=== PATIENT | male | born 1940 | race African-American/Black ===

== ENCOUNTER 2016-07-17 08:30 | Observation (INO) | payer MEDICARE, MEDICAID ==
[~2016-07-17] VITALS: Ht 167.6 cm; Wt 65.8 kg
[2016-07-17 10:34] LABS: Albumin 3.3 g/dL (3.4-5.0); BUN/Creatinine Ratio 17.5; Basophils # (auto) 0 uL; Basophils % (auto) 0.4 % (0.0-2.0); Bilirubin, Total 0.4 mg/dL (0.2-1.0); Calcium 9.1 mg/dL (8.5-10.1); Eosinophils # (auto) 0 uL; Eosinophils % (auto) 0.9 % (0.0-7.0); Hematocrit 42.3 % (41.0-53.0); Hemoglobin 14.2 g/dL (13.5-17.5); Lymphocytes # (auto) 1.2 uL; Lymphocytes % (auto) 26.8 % (10.0-50.0); Magnesium 2.1 mg/dL (1.6-2.6); Mean Corpuscular Hemoglobin 29.3 pg (28.0-32.0); Mean Corpuscular Hgb Conc. 33.5 g/dL (32.0-36.0); Mean Corpuscular Volume 87.4 fL (80.0-100.0); Mean Platelet Volume 8.4 fL (7.4-10.4); Monocytes # (auto) 0.3 uL; Monocytes % (auto) 6.9 % (0.0-12.0); Platelet Count (auto) 275 10^3/uL (140-450); Red Cell Distribution Width 14.9 % (11.6-16.0); Total Protein 7.9 g/dL (6.4-8.2); White Blood Cell 4.6 10^3/uL (4.4-10.8)
[2016-07-17 10:52] LABS: Potassium 3.7 mmol/L (3.5-5.1)
[2016-07-17 14:01] VITALS: BP 171/87
[2016-07-17 14:03] LABS: Partial Thromboplastin Time 26.3 sec (22.64-33.71); Prothrombin Time 10.3 sec (9.37-12.3)
[2016-07-17] MEDS ORDERED: ACETAMINOPHEN 500 MG TAB PO PRN (15:30)
[2016-07-17] MEDS ORDERED: NITROGLYCERIN 0.4 MG SL TAB SL PRN (15:30)
[2016-07-17] MEDS ORDERED: DEXTROSE (50%) 50ML SYRG IV PRN (15:30)
[2016-07-17] MEDS ORDERED: PROMETHAZINE HCL 25 MG/ML 1ML IV PRN (15:30)
[2016-07-17] MEDS ORDERED: HYDROcodone-ACET 5/325MG TAB PO PRN (15:30)
[2016-07-17] MEDS ORDERED: LORazepam 0.5 MG TAB PO PRN (15:30)
[2016-07-17] MEDS ORDERED: LACTULOSE 20Gm/30ML SOLN PO PRN (15:30)
[2016-07-17] MEDS ORDERED: MORPHINE SULF INJ 2 MG/ML SYRINGE 1ML IV PRN ×2 (15:30)
[2016-07-17] MEDS ORDERED: TEMAZEPAM 15 MG CAP PO PRN (15:30)
[2016-07-17] MEDS ORDERED: ENOXAPARIN SOD 40 MG/0.4 ML SYRINGE SC ONE (16:30)
[2016-07-17] MEDS ORDERED: ASPirin 81 mg TAB PO ONE (16:30)
[2016-07-17] MEDS ORDERED: PANTOPRAZOLE 40 MG TAB PO ONE (16:30)
[2016-07-17] MEDS ORDERED: POTASSIUM CHL 20 Meq TABLET PO ONE (16:30)
[2016-07-17] MEDS ORDERED: ENALAPRIL MALEATE 2.5 MG TAB PO ONE (16:30)
[2016-07-17] MEDS ORDERED: NITROGLYCERIN 0.2MG/HR TOPICAL PATCH TD ONE (16:30)
[2016-07-17] MEDS ORDERED: ACCU-CHEK COMFORT CURVE STRIP VI SCH (17:00)
[2016-07-17] MEDS ORDERED: InsuLIN REG 1unit/0.01ml Soln (100units/ml) SC SCH (17:00)
[2016-07-17] MEDS ORDERED: FUROSEMIDE 40 MG/4 ML VIAL IV SCH (18:00)
[2016-07-17] MEDS ORDERED: CARVEDILOL 3.125 MG TAB PO SCH (22:00)
[2016-07-18] MEDS ORDERED: PANTOPRAZOLE 40 MG TAB PO SCH (10:00)
[2016-07-18] MEDS ORDERED: NITROGLYCERIN 0.2MG/HR TOPICAL PATCH TD SCH (10:00)
[2016-07-18] MEDS ORDERED: POTASSIUM CHL 20 Meq TABLET PO SCH (10:00)
[2016-07-18] MEDS ORDERED: ASPirin 81 mg TAB PO SCH (10:00)
[2016-07-18] MEDS ORDERED: ENALAPRIL MALEATE 2.5 MG TAB PO SCH (10:00)
[2016-07-18] MEDS ORDERED: ENOXAPARIN SOD 40 MG/0.4 ML SYRINGE SC SCH (10:00)
[2016-07-19 12:37] LABS: Temperature: 21.8 C (20.0-25.0)
== END 2016-07-17 16:40 | disposition left against medical advice (07) | DRG 683 ==
LOC: ER 08:30 → EDUNIT# 08:30 → OVERFLOW 13:11 → ER 16:00
PROVIDERS: ADMIT Family Medicine; ATTEND Family Medicine
DX: I12.9 Hypertensive chronic kidney disease with stage 1 through stage 4 chronic kidney disease, or unspecified chronic kidney disease (principal); E74.8 Other specified disorders of carbohydrate metabolism; R42 Dizziness and giddiness; N18.3 Chronic kidney disease, stage 3 (moderate); E11.22 Type 2 diabetes mellitus with diabetic chronic kidney disease; Z82.49 Family history of ischemic heart disease and other diseases of the circulatory system
CPT/HCPCS: 36415; 70450; 71010; 80053; 82550; 82607; 82746; 83036; 83735; 84443; 84484; 85025; 85610; 85652; 85730; 86141; 93005; 94761; 99285; G0378

== ENCOUNTER 2017-08-27 17:41 | Emergency (ER) | payer MEDICARE, OTHER ==
[~2017-08-27] VITALS: Ht 167.6 cm; Wt 68.0 kg
[2017-08-27 17:47] VITALS: BP 200/92
[2017-08-27 22:29] LABS: Basophils # (auto) 0 uL; Basophils % (auto) 0.6 % (0.0-2.0); Eosinophils # (auto) 0.1 uL; Eosinophils % (auto) 1.7 % (0.0-7.0); Hemoglobin 13.7 g/dL (13.5-17.5); Lymphocytes # (auto) 1.3 uL; Mean Corpuscular Hemoglobin 29.4 pg (28.0-32.0); Mean Corpuscular Hgb Conc. 33.5 g/dL (32.0-36.0); Mean Corpuscular Volume 87.6 fL (80.0-100.0); Monocytes # (auto) 0.3 uL; Monocytes % (auto) 9.2 % (0.0-12.0); Neutrophils # (auto) 1.7 uL; Neutrophils % (auto) 50.5 % (37.0-80.0); Nucleated Red Blood Cells % 0.2 %; Platelet Count (auto) 218 10^3/uL (140-450); Red Blood Cells 4.67 10^6/uL (4.5-5.90); Red Cell Distribution Width 14.6 % (11.8-14.3); White Blood Cell 3.3 10^3/uL (4.4-10.8)
[2017-08-27 22:51] LABS: Albumin 3.2 g/dL (3.4-5.0); BUN/Creatinine Ratio 17.5; Calcium 8.9 mg/dL (8.5-10.1); Potassium 3.3 mmol/L (3.5-5.1)
[2017-08-27 22:56] LABS: Bilirubin, Total 0.4 mg/dL (0.2-1.0); Total Protein 7.4 g/dL (6.4-8.2)
== END 2017-08-28 00:08 | disposition home or self-care (01) ==
LOC: EDBD 17:41 → ER 17:41
DX: H93.11 Tinnitus, right ear (principal); R07.89 Other chest pain; I12.9 Hypertensive chronic kidney disease with stage 1 through stage 4 chronic kidney disease, or unspecified chronic kidney disease; E11.22 Type 2 diabetes mellitus with diabetic chronic kidney disease; N18.3 Chronic kidney disease, stage 3 (moderate)
CPT/HCPCS: 36415; 80053; 84484; 85025; 93005

== ENCOUNTER 2019-04-21 22:18 | Emergency (ER) | payer MEDICARE, OTHER ==
[~2019-04-21] VITALS: Ht 182.9 cm; Wt 63.5 kg
[2019-04-21] MEDS ORDERED: MECLIZINE HCL 25 MG TAB PO ONE (23:30)
[2019-04-21] MEDS ORDERED: LABETALOL HCL 5 MG/ML 4ML SYRINGE IV ONE (23:45)
[2019-04-22 00:39] LABS: INR 1.3 (0.9-1.15); Partial Thromboplastin Time 24.2 sec (23.64-32.05)
[2019-04-22 00:44] LABS: Urine Bacteria NONE SEEN /hpf (None Seen); Urine Blood Negative /uL (Negative); Urine Specific Gravity 1.011 (1.001-1.035); Urine WBC <1 /hpf (0 - 3)
[2019-04-22 00:46] LABS: Alanine Aminotransferase 26 U/L (16-61); Albumin 3.3 g/dL (3.4-5.0); Anion Gap 8 (5-15); BUN/Creatinine Ratio 20.6; Blood Alcohol < 3.0 mg/dL (0-5); Blood Urea Nitrogen 32 mg/dL (7-18); Carbon Dioxide 24 mmol/L (21-32); Chloride 108 mmol/L (98-107); GFR African American 56 mL/min; GFR Non-African American 46 mL/min; Glucose 105 mg/dL (74-106); Magnesium 2.1 mg/dL (1.6-2.6); Potassium 3.9 mmol/L (3.5-5.1); Sodium 140 mmol/L (136-145)
[2019-04-22 00:52] LABS: Alkaline Phosphatase 90 U/L (45-117); Aspartate Aminotransferase 29 U/L (15-37); Bilirubin, Total 0.4 mg/dL (0.2-1.0); Total Protein 7.8 g/dL (6.4-8.2)
[2019-04-22 01:26] LABS: Basophils # (auto) 0.2 uL; Eosinophils # (auto) 0 uL; Eosinophils % (auto) 0.8 % (0.0-7.0); Hematocrit 34.4 % (41.0-53.0); Hemoglobin 11.5 g/dL (13.5-17.5); Lymphocytes # (auto) 0.5 uL; Lymphocytes % (auto) 9.2 % (10.0-50.0); Mean Corpuscular Hemoglobin 29.8 pg (28.0-32.0); Mean Corpuscular Hgb Conc. 33.4 g/dL (32.0-36.0); Mean Corpuscular Volume 89.3 fL (80.0-100.0); Monocytes # (auto) 0.3 uL; Monocytes % (auto) 4.7 % (0.0-12.0); Neutrophils # (auto) 4.4 uL; Neutrophils % (auto) 81.3 % (37.0-80.0); Platelet Count (auto) 168 10^3/uL (140-450); Red Blood Cells 3.85 10^6/uL (4.5-5.90); Red Cell Distribution Width 14.5 % (11.8-14.3); White Blood Cell 5.4 10^3/uL (4.4-10.8)
[2019-04-22] MEDS ORDERED: LORazepam 2MG/ML-1ML VIAL ONE (02:07)
[2019-04-22] MEDS ORDERED: LORazepam 2MG/ML-1ML VIAL IV ONE (03:30)
[2019-04-22 05:07] VITALS: BP 182/71
== END 2019-04-22 07:26 | disposition left against medical advice (07) ==
LOC: EDBD 22:18 → EDSEX 22:18 → ER 22:22
DX: R42 Dizziness and giddiness (principal); R79.89 Other specified abnormal findings of blood chemistry; I12.9 Hypertensive chronic kidney disease with stage 1 through stage 4 chronic kidney disease, or unspecified chronic kidney disease; E11.22 Type 2 diabetes mellitus with diabetic chronic kidney disease; N18.3 Chronic kidney disease, stage 3 (moderate); E78.5 Hyperlipidemia, unspecified
CPT/HCPCS: 36415; 71045; 80053; 80320; 81001; 83605; 83735; 84484; 85025; 85379; 85610; 85730; 87040; 87086; 93005; 96374; 99284; J2060; J3490; J8597

== ENCOUNTER 2020-12-17 20:24 | Inpatient (IN) | payer MEDICARE, MEDICAID ==
[~2020-12-17] VITALS: Ht 165.1 cm; Wt 63.3 kg
[2020-12-17 22:28] LABS: Basophils # (auto) 0 10 ^3/uL (0-0.2); Basophils % (auto) 0.8 % (0.0-2.0); Eosinophils # (auto) 0.1 10 ^3/uL (0-0.8); Eosinophils % (auto) 1.3 % (0.0-7.0); Hematocrit 42.4 % (41.0-53.0); Hemoglobin 14.5 g/dL (13.5-17.5); Lymphocytes # (auto) 1.6 10 ^3/uL (0.4-5.4); Lymphocytes % (auto) 38.4 % (10.0-50.0); Mean Corpuscular Hemoglobin 29.1 pg (28.0-32.0); Mean Corpuscular Hgb Conc. 34.3 g/dL (32.0-36.0); Mean Corpuscular Volume 84.8 fL (80.0-100.0); Monocytes # (auto) 0.4 10 ^3/uL (0-1.3); Monocytes % (auto) 10.3 % (0.0-12.0); Neutrophils % (auto) 49.2 % (37.0-80.0); Nucleated Red Blood Cells % 0.2 %; Red Cell Distribution Width 14.2 % (11.8-14.3); White Blood Cell 4.1 10^3/uL (4.4-10.8)
[2020-12-17 22:47] LABS: Calcium 9.6 mg/dL (8.5-10.1); Magnesium 1.9 mg/dL (1.6-2.6); Potassium 4.1 mmol/L (3.5-5.1)
[2020-12-17 22:56] LABS: Bilirubin, Total 0.4 mg/dL (0.2-1.0); Total Protein 8.2 g/dL (6.4-8.2)
[2020-12-17] MEDS ORDERED: SODIUM CHLORIDE 0.9% 1,000 ML IV ONE (23:15)
[2020-12-17] MEDS ORDERED: InsuLIN REG 1unit/0.01ml Soln (100units/ml) IV ONE (23:15)
[2020-12-18] MEDS ORDERED: HYDROcodone-ACET 5/325MG TAB PO PRN (05:30)
[2020-12-18] MEDS ORDERED: ALUM & MAG HYDROX-SIMETH LIQ(MAALOX) 30 ML PO PRN (05:30)
[2020-12-18] MEDS: SODIUM CHLORIDE 0.9% 1,000 ML IV SCH ×4 (05:30→18:47)
[2020-12-18] MEDS ORDERED: InsuLIN R (HUMAN) 100 UNITS in SODIUM CHL 0.9% 99 ML IV SCH (05:30)
[2020-12-18] MEDS ORDERED: ONDANSETRON HCL 4 MG/2 ML VIAL IV PRN (05:30)
[2020-12-18] MEDS ORDERED: DOCUSATE SOD 100 MG CAP PO PRN (05:30)
[2020-12-18] MEDS ORDERED: ACETAMINOPHEN 325 MG TAB PO PRN (05:30)
[2020-12-18] MEDS: D5W/SOD CHL 0.45%/KCL 20MEQ 1,000 ML IV SCH ×2 (05:30→11:13)
[2020-12-18] MEDS ORDERED: MORPHINE SULF INJ 2 MG/ML SYRINGE 1ML IV PRN (05:30)
[2020-12-18] MEDS ORDERED: INSULIN LANTUS (GLARGINE) 1 /0.01ml (100units/ml) SC ONE (05:30)
[2020-12-18] MEDS ORDERED: DEXTROSE (50%) 50ML SYRG IV PRN ×2 (05:30→13:00)
[2020-12-18] MEDS: ACCU-CHEK COMFORT CURVE STRIP VI SCH ×7 (07:30→21:17)
[2020-12-18 09:22] LABS: Urine Bacteria NONE SEEN /hpf (None Seen); Urine Specific Gravity 1.015 (1.001-1.035); Urine WBC 2 /hpf (0 - 3)
[2020-12-18 09:24] LABS: Urine Blood Trace /uL (Negative)
[2020-12-18] MEDS ORDERED: SODIUM CHLORIDE 0.9% 1,000 ML IV SCH (09:30)
[2020-12-18 10:41] LABS: BUN/Creatinine Ratio 20.9; Calcium 9.2 mg/dL (8.5-10.1); Potassium 3.3 mmol/L (3.5-5.1)
[2020-12-18] MEDS: InsuLIN REG 1unit/0.01ml Soln (100units/ml) SC SCH (18:41)
[2020-12-18 19:21] LABS: BUN/Creatinine Ratio 19.5; Calcium 9.1 mg/dL (8.5-10.1); Potassium 3.8 mmol/L (3.5-5.1)
[2020-12-18 20:00] VITALS: BP 140/86
[2020-12-18 21:50] LABS: Potassium 3.4 mmol/L (3.5-5.1)
[2020-12-18 21:52] LABS: BUN/Creatinine Ratio 19.4
[2020-12-18 22:00] VITALS: BP 140/86
[2020-12-18] MEDS ORDERED: InsuLIN REG 1unit/0.01ml Soln (100units/ml) SC SCH (22:00)
[2020-12-19] MEDS: SODIUM CHLORIDE 0.9% 1,000 ML IV SCH ×2 (00:40→06:49)
[2020-12-19 05:00] VITALS: BP 138/91
[2020-12-19 05:51] LABS: Basophils # (auto) 0 10 ^3/uL (0-0.2); Basophils % (auto) 0.7 % (0.0-2.0); Eosinophils # (auto) 0.1 10 ^3/uL (0-0.8); Eosinophils % (auto) 1.9 % (0.0-7.0); Hematocrit 42.3 % (41.0-53.0); Hemoglobin 14.2 g/dL (13.5-17.5); Lymphocytes # (auto) 1.9 10 ^3/uL (0.4-5.4); Lymphocytes % (auto) 43.5 % (10.0-50.0); Mean Corpuscular Hemoglobin 28.5 pg (28.0-32.0); Mean Corpuscular Hgb Conc. 33.6 g/dL (32.0-36.0); Mean Corpuscular Volume 84.7 fL (80.0-100.0); Monocytes # (auto) 0.4 10 ^3/uL (0-1.3); Monocytes % (auto) 9.2 % (0.0-12.0); Neutrophils # (auto) 1.9 10 ^3/uL (1.6-8.6); Neutrophils % (auto) 44.7 % (37.0-80.0); Nucleated Red Blood Cells % 0.1 %; Red Cell Distribution Width 14.3 % (11.8-14.3); White Blood Cell 4.3 10^3/uL (4.4-10.8)
[2020-12-19 06:16] LABS: Albumin 2.5 g/dL (3.4-5.0); Calcium 8.9 mg/dL (8.5-10.1); Potassium 3.1 mmol/L (3.5-5.1)
[2020-12-19 06:20] LABS: BUN/Creatinine Ratio 20.3; Bilirubin, Total 0.4 mg/dL (0.2-1.0); Total Protein 6.9 g/dL (6.4-8.2)
[2020-12-19] MEDS: ACCU-CHEK COMFORT CURVE STRIP VI SCH ×2 (06:48→11:30)
[2020-12-19] MEDS: InsuLIN REG 1unit/0.01ml Soln (100units/ml) SC SCH ×2 (06:49→11:30)
[2020-12-19 09:00] VITALS: BP 149/96
[2020-12-19] MEDS ORDERED: INSULIN LANTUS (GLARGINE) 1 /0.01ml (100units/ml) SC SCH (10:00)
[2020-12-19] MEDS ORDERED: POTASSIUM CHL 20 Meq TABLET PO ONE (11:15)
[2020-12-19 12:18] VITALS: BP 149/46
[2020-12-19 13:11] VITALS: BP 117/73
== END 2020-12-19 13:00 | disposition home or self-care (01) | DRG 637 ==
LOC: EDBD 20:24 → EDUNIT# 20:24 → ER 20:26 → TELE 12-18 05:17 → TELE-WESTW 12-18 16:33
PROVIDERS: ADMIT Hospitalist; ATTEND Family Medicine
DX: E11.10 Type 2 diabetes mellitus with ketoacidosis without coma (principal); G93.41 Metabolic encephalopathy; E87.1 Hypo-osmolality and hyponatremia; F03.90 Unspecified dementia, unspecified severity, without behavioral disturbance, psychotic disturbance, mood disturbance, and anxiety; E11.22 Type 2 diabetes mellitus with diabetic chronic kidney disease; E78.00 Pure hypercholesterolemia, unspecified; I12.9 Hypertensive chronic kidney disease with stage 1 through stage 4 chronic kidney disease, or unspecified chronic kidney disease; N18.9 Chronic kidney disease, unspecified; Z20.822 Contact with and (suspected) exposure to COVID-19; Z82.49 Family history of ischemic heart disease and other diseases of the circulatory system; Z83.3 Family history of diabetes mellitus
CPT/HCPCS: 36415; 80048; 80053; 81001; 82010; 82962; 83036; 83735; 83880; 85025; 87081; 87426; 96361; 96374; G0378; J1815

== ENCOUNTER 2021-01-31 05:19 | Emergency (ER) | payer MEDICARE, MEDICAID ==
[~2021-01-31] VITALS: Ht 165.1 cm; Wt 68.0 kg
[2021-01-31 06:40] LABS: Basophils # (auto) 0 10 ^3/uL (0-0.2); Basophils % (auto) 0.7 % (0.0-2.0); Eosinophils # (auto) 0 10 ^3/uL (0-0.8); Eosinophils % (auto) 0.7 % (0.0-7.0); Hematocrit 43.1 % (41.0-53.0); Hemoglobin 14.2 g/dL (13.5-17.5); Lymphocytes # (auto) 0.7 10 ^3/uL (0.4-5.4); Lymphocytes % (auto) 17.3 % (10.0-50.0); Mean Corpuscular Hemoglobin 28.4 pg (28.0-32.0); Mean Corpuscular Hgb Conc. 32.9 g/dL (32.0-36.0); Mean Corpuscular Volume 86.2 fL (80.0-100.0); Monocytes # (auto) 0.3 10 ^3/uL (0-1.3); Monocytes % (auto) 6.3 % (0.0-12.0); Neutrophils # (auto) 3.2 10 ^3/uL (1.6-8.6); Nucleated Red Blood Cells % 0.1 %; Red Cell Distribution Width 16.5 % (11.8-14.3); White Blood Cell 4.3 10^3/uL (4.4-10.8)
[2021-01-31 06:58] LABS: Chloride 103 mmol/L (98-107); Sodium 139 mmol/L (136-145)
[2021-01-31 07:05] LABS: Alanine Aminotransferase 28 U/L (16-61); Albumin 3.1 g/dL (3.4-5.0); Anion Gap 11 (5-15); Aspartate Aminotransferase 27 U/L (15-37); BUN/Creatinine Ratio 17.4; Blood Urea Nitrogen 26 mg/dL (7-18); Calcium 9.3 mg/dL (8.5-10.1); Carbon Dioxide 25 mmol/L (21-32); GFR African American 58 mL/min; GFR Non-African American 48 mL/min; Glucose 149 mg/dL (74-106); Lipase 205 U/L (73-393)
[2021-01-31 07:20] LABS: Alkaline Phosphatase 74 U/L (45-117); Bilirubin, Total 0.3 mg/dL (0.2-1.0)
[2021-01-31] MEDS ORDERED: cloNIDine HCL 0.1 MG TAB PO ONE ×2 (07:30→08:15)
[2021-01-31] MEDS ORDERED: SODIUM CHLORIDE 0.9% 1,000 ML IV ONE (07:30)
[2021-01-31 12:00] VITALS: BP 151/77
== END 2021-01-31 13:42 | disposition home or self-care (01) ==
LOC: EDBD 05:19 → ER 05:19
DX: I11.0 Hypertensive heart disease with heart failure (principal); E11.65 Type 2 diabetes mellitus with hyperglycemia; I50.9 Heart failure, unspecified; E46 Unspecified protein-calorie malnutrition; E78.5 Hyperlipidemia, unspecified; Z68.25 Body mass index [BMI] 25.0-25.9, adult; Z20.822 Contact with and (suspected) exposure to COVID-19
CPT/HCPCS: 36415; 70450; 71045; 80053; 83605; 83690; 84484; 85025; 87426; 93005; 96360; 96361; 99285; J7030

== ENCOUNTER 2021-05-29 08:48 | Emergency (ER) | payer MEDICAID, MEDICARE, OTHER ==
[~2021-05-29] VITALS: Ht 172.7 cm; Wt 63.5 kg
[2021-05-29] MEDS ORDERED: MECL25CH38 PO (09:45)
[2021-05-29 10:45] VITALS: BP 161/74
[2021-05-29] MEDS ORDERED: MECLIZINE HCL 25 MG TAB PO ONE (11:15)
== END 2021-05-29 11:24 | disposition home or self-care (01) ==
LOC: ER 08:48 → EDBD 08:48 → ER 11:24
DX: R42 Dizziness and giddiness (principal); R53.1 Weakness; R11.2 Nausea with vomiting, unspecified; I11.0 Hypertensive heart disease with heart failure; I50.9 Heart failure, unspecified; E11.9 Type 2 diabetes mellitus without complications; E78.5 Hyperlipidemia, unspecified
CPT/HCPCS: 70450; 93005; 99284; J8597

== ENCOUNTER 2021-09-04 21:19 | Emergency (ER) | payer MEDICARE, OTHER ==
[~2021-09-04] VITALS: Ht 175.3 cm; Wt 72.6 kg
[~2021-09-04 21:19] MED LIST: MECL25CH38 PO
[2021-09-04 23:30] LABS: Basophils # (auto) 0 10 ^3/uL (0-0.2); Basophils % (auto) 0.7 % (0.0-2.0); Eosinophils # (auto) 0 10 ^3/uL (0-0.8); Eosinophils % (auto) 0.7 % (0.0-7.0); Hemoglobin 12.5 g/dL (13.5-17.5); Lymphocytes % (auto) 19.1 % (10.0-50.0); Mean Corpuscular Hemoglobin 30.1 pg (28.0-32.0); Mean Corpuscular Hgb Conc. 33.7 g/dL (32.0-36.0); Mean Corpuscular Volume 89.1 fL (80.0-100.0); Monocytes # (auto) 0.4 10 ^3/uL (0-1.3); Monocytes % (auto) 7.4 % (0.0-12.0); Neutrophils # (auto) 3.7 10 ^3/uL (1.6-8.6); Neutrophils % (auto) 72.1 % (37.0-80.0); Nucleated Red Blood Cells % 0.1 %; Red Blood Cells 4.15 10^6/uL (4.5-5.90); Red Cell Distribution Width 14.6 % (11.8-14.3); White Blood Cell 5.1 10^3/uL (4.4-10.8)
[2021-09-05 01:09] LABS: Albumin 2.9 g/dL (3.4-5.0); BUN/Creatinine Ratio 16.1; Potassium 3.6 mmol/L (3.5-5.1)
[2021-09-05 01:12] LABS: Bilirubin, Total 0.1 mg/dL (0.2-1.0); Total Protein 6.8 g/dL (6.4-8.2)
[2021-09-05 06:00] VITALS: BP 133/70
== END 2021-09-05 06:20 | disposition home or self-care (01) ==
LOC: EDBD 21:19 → ER 21:22
DX: F03.90 Unspecified dementia, unspecified severity, without behavioral disturbance, psychotic disturbance, mood disturbance, and anxiety (principal); E11.22 Type 2 diabetes mellitus with diabetic chronic kidney disease; I13.0 Hypertensive heart and chronic kidney disease with heart failure and stage 1 through stage 4 chronic kidney disease, or unspecified chronic kidney disease; N18.30 Chronic kidney disease, stage 3 unspecified; I50.9 Heart failure, unspecified
CPT/HCPCS: 36415; 80053; 85025; 93005

== ENCOUNTER 2021-12-27 01:41 | Emergency (ER) | payer MEDICAID, MEDICARE, OTHER ==
[~2021-12-27] VITALS: Ht 182.9 cm; Wt 61.3 kg
[2021-12-27 04:04] LABS: Basophils # (auto) 0 10 ^3/uL (0-0.2); Basophils % (auto) 0.6 % (0.0-2.0); Eosinophils # (auto) 0.1 10 ^3/uL (0-0.8); Eosinophils % (auto) 1.4 % (0.0-7.0); Hematocrit 38.9 % (41.0-53.0); Hemoglobin 12.9 g/dL (13.5-17.5); Lymphocytes # (auto) 1.7 10 ^3/uL (0.4-5.4); Lymphocytes % (auto) 45.1 % (10.0-50.0); Mean Corpuscular Hemoglobin 29.5 pg (28.0-32.0); Mean Corpuscular Hgb Conc. 33.3 g/dL (32.0-36.0); Mean Corpuscular Volume 88.5 fL (80.0-100.0); Monocytes # (auto) 0.4 10 ^3/uL (0-1.3); Monocytes % (auto) 10.4 % (0.0-12.0); Neutrophils # (auto) 1.6 10 ^3/uL (1.6-8.6); Neutrophils % (auto) 42.5 % (37.0-80.0); Nucleated Red Blood Cells % 0.2 %; Red Blood Cells 4.39 10^6/uL (4.5-5.90); Red Cell Distribution Width 14.8 % (11.8-14.3); White Blood Cell 3.8 10^3/uL (4.4-10.8)
[2021-12-27 04:19] LABS: Albumin 3.2 g/dL (3.4-5.0); BUN/Creatinine Ratio 16.6; Potassium 3.2 mmol/L (3.5-5.1)
[2021-12-27 04:21] LABS: Bilirubin, Total 0.3 mg/dL (0.2-1.0); Total Protein 7.3 g/dL (6.4-8.2)
[2021-12-27 06:10] VITALS: BP 154/84
== END 2021-12-27 06:10 | disposition home or self-care (01) ==
LOC: ER 01:41 → EDBD 01:41 → ER 06:10
DX: R55 Syncope and collapse (principal); I11.0 Hypertensive heart disease with heart failure; I50.9 Heart failure, unspecified; E11.9 Type 2 diabetes mellitus without complications; E78.5 Hyperlipidemia, unspecified; Z79.899 Other long term (current) drug therapy
CPT/HCPCS: 36415; 80053; 85025; 93005

== ENCOUNTER 2022-04-23 04:04 | Inpatient (IN) | payer OTHER, MEDICAID ==
[~2022-04-23] VITALS: Ht 193 cm; Wt 77.1 kg
[2022-04-23] MEDS ORDERED: TETANUS-DIPTH-ACEL PERTUSSIS 0.5ML SYR Tdap IM ONE (07:15)
[2022-04-23] MEDS ORDERED: BUPIVACAINE W/ EPINEPH 0.25% INJ 50ML MDV IJ ONE (10:45)
[2022-04-23] MEDS ORDERED: ceFAZolin 1GM/50ML 50 ML IV ONE ×2 (11:00→13:45)
[2022-04-23 11:11] LABS: Basophils # (auto) 0 10 ^3/uL (0-0.2); Basophils % (auto) 0.4 % (0.0-2.0); Eosinophils # (auto) 0 10 ^3/uL (0-0.8); Eosinophils % (auto) 1.3 % (0.0-7.0); Hematocrit 44.4 % (41.0-53.0); Hemoglobin 14.3 g/dL (13.5-17.5); Lymphocytes # (auto) 1.1 10 ^3/uL (0.4-5.4); Lymphocytes % (auto) 34.4 % (10.0-50.0); Mean Corpuscular Hemoglobin 28.7 pg (28.0-32.0); Mean Corpuscular Hgb Conc. 32.2 g/dL (32.0-36.0); Mean Corpuscular Volume 89.1 fL (80.0-100.0); Monocytes # (auto) 0.4 10 ^3/uL (0-1.3); Monocytes % (auto) 12.7 % (0.0-12.0); Neutrophils # (auto) 1.6 10 ^3/uL (1.6-8.6); Neutrophils % (auto) 51.2 % (37.0-80.0); Nucleated Red Blood Cells % 0.1 %; Red Blood Cells 4.98 10^6/uL (4.5-5.90); Red Cell Distribution Width 15.9 % (11.8-14.3); White Blood Cell 3.1 10^3/uL (4.4-10.8)
[2022-04-23 11:29] LABS: BUN/Creatinine Ratio 15.8; Calcium 9.6 mg/dL (8.5-10.1); Potassium 3.2 mmol/L (3.5-5.1)
[2022-04-23] MEDS ORDERED: BUPIVACAINE 0.75% INJ 10ML MPV SDV IJ ONE (12:00)
[2022-04-23] MEDS ORDERED: EPINEPHrine HCL 1 MG/1 ML AMP SC ONE (12:00)
[2022-04-23] MEDS ORDERED: ONDANSETRON HCL 4 MG/2 ML VIAL IV PRN (12:30)
[2022-04-23] MEDS ORDERED: HYDROcodone-ACET 5/325MG TAB PO PRN (12:30)
[2022-04-23] MEDS ORDERED: DEXTROSE (50%) 50ML SYRG IV PRN (12:30)
[2022-04-23] MEDS ORDERED: DOCUSATE SOD 100 MG CAP PO PRN (12:30)
[2022-04-23] MEDS ORDERED: POTASSIUM EFFERVESENT TAB 25 MEQ PO ONE (13:00)
[2022-04-23] MEDS ORDERED: BUPIVACAINE W/ EPINEPH 0.5% MPF 30ML VIAL IJ ONE (13:00)
[2022-04-23 13:13] LABS: Magnesium 1.7 mg/dL (1.6-2.6); Phosphorus 2.3 mg/dL (2.5-4.90)
[2022-04-23] MEDS: SODIUM CHLORIDE 0.9% 1,000 ML IV SCH ×2 (13:30→15:44)
[2022-04-23 15:03] LABS: Sodium Urine 110 mmol/L (40-220)
[2022-04-23 15:24] LABS: Urine Bacteria FEW /hpf (None Seen); Urine Blood Negative /uL (Negative); Urine Specific Gravity 1.019 (1.001-1.035); Urine WBC <1 /hpf (0 - 3)
[2022-04-23] MEDS: ACCU-CHEK COMFORT CURVE STRIP VI SCH ×2 (17:23→22:42)
[2022-04-23] MEDS: InsuLIN REG 1unit/0.01ml Soln (100units/ml) SC SCH ×2 (17:24→22:43)
[2022-04-23 22:00] VITALS: BP 156/90
[2022-04-23] MEDS: NEOMYCIN-BACITRACIN-POLYM 15GM TOP OINT TOP SCH (22:42)
[2022-04-23] MEDS: ATORVASTATIN 20 MG TAB PO SCH (22:42)
[2022-04-24] VITALS (7 sets, daily range): BP systolic 130–181; BP diastolic 85–96
[2022-04-24 05:41] LABS: Basophils # (auto) 0 10 ^3/uL (0-0.2); Basophils % (auto) 0.5 % (0.0-2.0); Eosinophils # (auto) 0.1 10 ^3/uL (0-0.8); Eosinophils % (auto) 1.8 % (0.0-7.0); Hematocrit 43.2 % (41.0-53.0); Hemoglobin 14.4 g/dL (13.5-17.5); Lymphocytes # (auto) 1.4 10 ^3/uL (0.4-5.4); Lymphocytes % (auto) 35.5 % (10.0-50.0); Mean Corpuscular Hemoglobin 29.6 pg (28.0-32.0); Mean Corpuscular Hgb Conc. 33.3 g/dL (32.0-36.0); Mean Corpuscular Volume 88.7 fL (80.0-100.0); Monocytes # (auto) 0.4 10 ^3/uL (0-1.3); Monocytes % (auto) 10.4 % (0.0-12.0); Neutrophils # (auto) 2.1 10 ^3/uL (1.6-8.6); Neutrophils % (auto) 51.8 % (37.0-80.0); Nucleated Red Blood Cells % 0.2 %; Red Blood Cells 4.87 10^6/uL (4.5-5.90); Red Cell Distribution Width 15.9 % (11.8-14.3)
[2022-04-24 05:53] LABS: Potassium 3.7 mmol/L (3.5-5.1)
[2022-04-24 06:02] LABS: Albumin 3.1 g/dL (3.4-5.0); BUN/Creatinine Ratio 17.3; Bilirubin, Total 0.7 mg/dL (0.2-1.0); Calcium 9.7 mg/dL (8.5-10.1); Total Protein 6.9 g/dL (6.4-8.2)
[2022-04-24] MEDS: ACCU-CHEK COMFORT CURVE STRIP VI SCH ×4 (06:52→21:01)
[2022-04-24] MEDS: InsuLIN REG 1unit/0.01ml Soln (100units/ml) SC SCH ×4 (06:53→21:20)
[2022-04-24] MEDS: NEOMYCIN-BACITRACIN-POLYM 15GM TOP OINT TOP SCH ×2 (09:33→21:02)
[2022-04-24 11:09] LABS: Creatinine, Urine 61 mg/dL (30.0-125.0)
[2022-04-24] MEDS: hydrALAZINE HCL 20 MG/ML VL IV PRN ×2 (12:38→21:58)
[2022-04-24] MEDS: SODIUM CHLORIDE 0.9% 1,000 ML IV SCH (16:10)
[2022-04-24] MEDS ORDERED: ASPI-543 PO (17:51)
[2022-04-24] MEDS ORDERED: TAMS0.4C36 PO (17:51)
[2022-04-24] MEDS ORDERED: NIFE1TAB30 PO (17:51)
[2022-04-24] MEDS ORDERED: INSUINJ37 SC (17:51)
[2022-04-24] MEDS: ATORVASTATIN 20 MG TAB PO SCH (21:02)
[2022-04-24] MEDS ORDERED: LORazepam 2MG/ML-1ML VIAL IV PRN (22:15)
[2022-04-24] MEDS ORDERED: HALOPERIDOL LACTATE 5 MG/ML INJ VIAL IM PRN (22:15)
[2022-04-25] MEDS: SODIUM CHLORIDE 0.9% 1,000 ML IV SCH ×2 (03:38→18:46)
[2022-04-25 05:00] VITALS: BP 152/79
[2022-04-25] MEDS: InsuLIN REG 1unit/0.01ml Soln (100units/ml) SC SCH ×4 (06:04→21:16)
[2022-04-25] MEDS: ACCU-CHEK COMFORT CURVE STRIP VI SCH ×4 (06:05→21:16)
[2022-04-25] MEDS: hydrALAZINE HCL 20 MG/ML VL IV PRN (06:06)
[2022-04-25 07:31] LABS: Potassium 3.8 mmol/L (3.5-5.1)
[2022-04-25 08:00] VITALS: BP 147/82
[2022-04-25 08:13] VITALS: BP 147/82
[2022-04-25 08:18] LABS: BUN/Creatinine Ratio 19.6; Calcium 9.5 mg/dL (8.5-10.1); Phosphorus 2.5 mg/dL (2.5-4.90); Uric Acid 6.4 mg/dL (3.5-7.2)
[2022-04-25] MEDS: NEOMYCIN-BACITRACIN-POLYM 15GM TOP OINT TOP SCH ×2 (09:40→21:15)
[2022-04-25] MEDS ORDERED: NIFEdipine ER 30 MG TAB PO ONE (11:00)
[2022-04-25 13:07] VITALS: BP 178/88
[2022-04-25 17:00] VITALS: BP 183/92
[2022-04-25] MEDS: TAMSULOSIN HYDROCHLORIDE 0.4 MG CAP PO SCH (18:45)
[2022-04-25] MEDS: QUEtiapine FUMARATE 25 MG TAB PO SCH (21:15)
[2022-04-25] MEDS: ATORVASTATIN 20 MG TAB PO SCH (21:15)
[2022-04-25 22:00] VITALS: BP 138/78
[2022-04-26 05:00] VITALS: BP 119/66
[2022-04-26] MEDS: ACCU-CHEK COMFORT CURVE STRIP VI SCH ×4 (06:11→21:12)
[2022-04-26] MEDS: InsuLIN REG 1unit/0.01ml Soln (100units/ml) SC SCH ×4 (06:12→21:13)
[2022-04-26 08:00] VITALS: BP 123/73
[2022-04-26] MEDS: SODIUM CHLORIDE 0.9% 1,000 ML IV SCH (08:30)
[2022-04-26 09:00] VITALS: BP 123/71
[2022-04-26] MEDS: ASPirin-EC 81 mg tab PO SCH (09:29)
[2022-04-26] MEDS: NEOMYCIN-BACITRACIN-POLYM 15GM TOP OINT TOP SCH ×2 (09:30→21:17)
[2022-04-26] MEDS: INSULIN LANTUS (GLARGINE) 1 /0.01ml (100units/ml) SC SCH (09:30)
[2022-04-26] MEDS: NIFEdipine ER 30 MG TAB PO SCH (09:30)
[2022-04-26 09:46] LABS: Folate (Folic Acid) 22.08 ng/mL (5.38-24)
[2022-04-26] MEDS ORDERED: PATIENTS OWN MEDICATION (Nifedipine (Nifedipine Er) 1 TAB) PO SCH (10:00)
[2022-04-26 12:10] LABS: Protein, Urine 45.3 mg/dL (0.0-11.9)
[2022-04-26 13:00] VITALS: BP 149/75
[2022-04-26 13:34] LABS: Urine Blood Negative /uL (Negative); Urine Specific Gravity 1.026 (1.001-1.035)
[2022-04-26 17:00] VITALS: BP 133/67
[2022-04-26] MEDS: TAMSULOSIN HYDROCHLORIDE 0.4 MG CAP PO SCH (17:56)
[2022-04-26] MEDS: QUEtiapine FUMARATE 25 MG TAB PO SCH (21:17)
[2022-04-26] MEDS: ATORVASTATIN 20 MG TAB PO SCH (21:17)
[2022-04-26 22:00] VITALS: BP 139/64
[2022-04-27 05:00] VITALS: BP 143/72
[2022-04-27] MEDS: ACCU-CHEK COMFORT CURVE STRIP VI SCH ×4 (06:08→21:47)
[2022-04-27] MEDS: InsuLIN REG 1unit/0.01ml Soln (100units/ml) SC SCH ×4 (06:08→21:52)
[2022-04-27 07:21] LABS: Calcium 9.4 mg/dL (8.5-10.1); Potassium 3.6 mmol/L (3.5-5.1)
[2022-04-27 07:25] LABS: BUN/Creatinine Ratio 20.3; Bilirubin, Total 0.4 mg/dL (0.2-1.0); Phosphorus 2.4 mg/dL (2.5-4.90)
[2022-04-27 09:25] VITALS: BP 148/79
[2022-04-27] MEDS: ASPirin-EC 81 mg tab PO SCH (09:53)
[2022-04-27] MEDS: NIFEdipine ER 30 MG TAB PO SCH (09:53)
[2022-04-27] MEDS: NEOMYCIN-BACITRACIN-POLYM 15GM TOP OINT TOP SCH ×2 (09:54→21:46)
[2022-04-27] MEDS: INSULIN LANTUS (GLARGINE) 1 /0.01ml (100units/ml) SC SCH (10:00)
[2022-04-27] MEDS: TAMSULOSIN HYDROCHLORIDE 0.4 MG CAP PO SCH (12:16)
[2022-04-27 12:53] VITALS: BP 129/107
[2022-04-27 16:52] VITALS: BP 171/90
[2022-04-27] MEDS: QUEtiapine FUMARATE 25 MG TAB PO SCH (21:46)
[2022-04-27] MEDS: ATORVASTATIN 20 MG TAB PO SCH (21:46)
[2022-04-27 22:00] VITALS: BP 138/75
[2022-04-28 05:00] VITALS: BP 132/74
[2022-04-28 05:53] LABS: Potassium 3.6 mmol/L (3.5-5.1)
[2022-04-28 05:57] LABS: BUN/Creatinine Ratio 21.2; Calcium 9.4 mg/dL (8.5-10.1)
[2022-04-28 05:59] LABS: Bilirubin, Total 0.3 mg/dL (0.2-1.0); Total Protein 6.8 g/dL (6.4-8.2)
[2022-04-28] MEDS: ACCU-CHEK COMFORT CURVE STRIP VI SCH ×4 (06:37→21:49)
[2022-04-28] MEDS: InsuLIN REG 1unit/0.01ml Soln (100units/ml) SC SCH ×4 (06:37→22:01)
[2022-04-28 09:00] VITALS: BP 162/83
[2022-04-28] MEDS: NEOMYCIN-BACITRACIN-POLYM 15GM TOP OINT TOP SCH ×2 (10:00→21:49)
[2022-04-28] MEDS: INSULIN LANTUS (GLARGINE) 1 /0.01ml (100units/ml) SC SCH (10:00)
[2022-04-28] MEDS: NIFEdipine ER 30 MG TAB PO SCH (11:14)
[2022-04-28] MEDS: ASPirin-EC 81 mg tab PO SCH (11:14)
[2022-04-28 17:00] VITALS: BP 136/94
[2022-04-28] MEDS: TAMSULOSIN HYDROCHLORIDE 0.4 MG CAP PO SCH (18:00)
[2022-04-28] MEDS: ATORVASTATIN 20 MG TAB PO SCH (21:48)
[2022-04-28] MEDS: QUEtiapine FUMARATE 25 MG TAB PO SCH (21:49)
[2022-04-28 22:00] VITALS: BP 147/65
[2022-04-29 05:00] VITALS: BP 147/71
[2022-04-29 05:47] LABS: Potassium 4.1 mmol/L (3.5-5.1)
[2022-04-29 05:55] LABS: Albumin 2.9 g/dL (3.4-5.0); BUN/Creatinine Ratio 19.4; Bilirubin, Total 0.4 mg/dL (0.2-1.0); Calcium 9.4 mg/dL (8.5-10.1)
[2022-04-29] MEDS: InsuLIN REG 1unit/0.01ml Soln (100units/ml) SC SCH ×4 (06:46→22:56)
[2022-04-29] MEDS: ACCU-CHEK COMFORT CURVE STRIP VI SCH ×4 (06:46→22:00)
[2022-04-29 08:00] VITALS: BP 151/80
[2022-04-29] MEDS: INSULIN LANTUS (GLARGINE) 1 /0.01ml (100units/ml) SC SCH (10:00)
[2022-04-29] MEDS: ASPirin-EC 81 mg tab PO SCH (10:02)
[2022-04-29] MEDS: NIFEdipine ER 30 MG TAB PO SCH (10:02)
[2022-04-29 12:00] VITALS: BP 170/85
[2022-04-29] MEDS: hydrALAZINE HCL 20 MG/ML VL IV PRN ×2 (12:23→18:21)
[2022-04-29] MEDS: NEOMYCIN-BACITRACIN-POLYM 15GM TOP OINT TOP SCH ×2 (12:43→22:34)
[2022-04-29 16:00] VITALS: BP 163/92
[2022-04-29] MEDS: TAMSULOSIN HYDROCHLORIDE 0.4 MG CAP PO SCH (18:14)
[2022-04-29 20:00] VITALS: BP 103/58
[2022-04-29 22:00] VITALS: BP 103/58
[2022-04-29] MEDS ORDERED: DONEPEZIL HYDROCHLORIDE 5 MG TAB PO SCH (22:00)
[2022-04-29] MEDS: QUEtiapine FUMARATE 25 MG TAB PO SCH (22:34)
[2022-04-29] MEDS: ATORVASTATIN 20 MG TAB PO SCH (22:34)
[2022-04-30 05:00] VITALS: BP 101/61
[2022-04-30] MEDS: ACCU-CHEK COMFORT CURVE STRIP VI SCH ×2 (06:27→12:35)
[2022-04-30] MEDS: InsuLIN REG 1unit/0.01ml Soln (100units/ml) SC SCH ×2 (06:30→12:45)
[2022-04-30 09:00] VITALS: BP 147/81
[2022-04-30] MEDS: ASPirin-EC 81 mg tab PO SCH (10:10)
[2022-04-30] MEDS: NIFEdipine ER 30 MG TAB PO SCH (10:11)
[2022-04-30] MEDS: NEOMYCIN-BACITRACIN-POLYM 15GM TOP OINT TOP SCH (10:12)
[2022-04-30] MEDS: INSULIN LANTUS (GLARGINE) 1 /0.01ml (100units/ml) SC SCH (10:17)
[2022-04-30 13:00] VITALS: BP 144/79
== END 2022-04-30 16:40 | disposition home or self-care (01) | DRG 604 ==
LOC: EDBD 04:04 → ER 04:04 → EDUNIT# 04:04 → TELE 12:26 → TELE-WESTW 22:55 → WEST WING 04-28 22:30
PROVIDERS: ADMIT Nurse Practitioner Family; ATTEND Internal Medicine Geriatric Medicine
PROC: 0HQ1XZZ Repair Face Skin, External Approach (ICD-10-PCS; principal; 2022-04-23)
DX: S01.81XA Laceration without foreign body of other part of head, initial encounter (principal); G93.41 Metabolic encephalopathy; N39.0 Urinary tract infection, site not specified; I13.0 Hypertensive heart and chronic kidney disease with heart failure and stage 1 through stage 4 chronic kidney disease, or unspecified chronic kidney disease; N18.9 Chronic kidney disease, unspecified; I50.9 Heart failure, unspecified; G30.9 Alzheimer's disease, unspecified; N18.32 Chronic kidney disease, stage 3b; E11.22 Type 2 diabetes mellitus with diabetic chronic kidney disease; Z20.822 Contact with and (suspected) exposure to COVID-19; E11.65 Type 2 diabetes mellitus with hyperglycemia; E78.5 Hyperlipidemia, unspecified; E87.5 Hyperkalemia; F02.80 Dementia in other diseases classified elsewhere, unspecified severity, without behavioral disturbance, psychotic disturbance, mood disturbance, and anxiety; F17.200 Nicotine dependence, unspecified, uncomplicated; F29 Unspecified psychosis not due to a substance or known physiological condition; Z82.49 Family history of ischemic heart disease and other diseases of the circulatory system; Z83.3 Family history of diabetes mellitus
CPT/HCPCS: 12011; 36415; 70450; 70486; 70551; 71045; 72125; 76775; 80048; 80053; 81001; 81003; 82306; 82570; 82607; 82746; 82962; 83735; 83970; 84100; 84156; 84300; 84443; 84550; 85025; 87426; 90471; 90715; 93005; 95819; 97116; 97163; 97530; G0378; J0690; J1815